=== PATIENT | male | born 1980 | race African-American/Black ===

== ENCOUNTER 2023-04-21 04:09 | Day surgery (SDC) | payer OTHER ==
[2023-04-17 14:30] VITALS: BMI 25.8
[2023-04-21 12:31] VITALS: RESP 18
[2023-04-21] MEDS ORDERED: MIDAZOLAM HCL 2 MG/2 ML SINGLE DOSE VIAL ONE (13:47)
[2023-04-21 16:28] VITALS: BP 135/76; PULSE 79; TEMP 97.7
== END 2023-04-21 17:04 | disposition home or self-care (01) ==
LOC: JASU-SURG 04:09
PROVIDERS: ATTEND Urology
PROC: 0TF3XZZ Fragmentation in Right Kidney Pelvis, External Approach (ICD-10-PCS; principal; 2023-04-21 14:00)
DX: N20.0 Calculus of kidney (principal)